=== PATIENT | female | born 1990 | race Caucasian/White ===

== ENCOUNTER 2023-08-16 11:24 | Emergency (ER) | payer MEDICAID ==
[~2023-08-16] VITALS: Ht 160 cm; Wt 64.0 kg
[2023-08-16 11:29] VITALS: TEMP 98.4; O2SAT 98
[2023-08-16 12:30] VITALS: BP 148/105; PULSE 101; RESP 18
[2023-08-16] MEDS ORDERED: IBUPROFEN 600MG TABLET PO ONE (12:30)
[2023-08-16] MEDS ORDERED: METHOCARBAMOL 500MG TABLET PO ONE (12:30)
[2023-08-16] MEDS ORDERED: IBUP-2029 MT (14:38)
[2023-08-16] MEDS ORDERED: METH-653 MT (14:38)
== END 2023-08-16 14:56 | disposition home or self-care (01) ==
LOC: ER 11:42
DX: S13.4XXA Sprain of ligaments of cervical spine, initial encounter (principal); S33.5XXA Sprain of ligaments of lumbar spine, initial encounter; Z88.0 Allergy status to penicillin; V89.2XXA Person injured in unspecified motor-vehicle accident, traffic, initial encounter; Y93.89 Activity, other specified; Y92.89 Other specified places as the place of occurrence of the external cause; Y99.8 Other external cause status
CPT/HCPCS: 71045; 81025; 99284